=== PATIENT | female | born 1980 | race Caucasian/White ===

== ENCOUNTER 2016-11-30 13:32 | Emergency (ER) | payer BC ==
[~2016-11-30] VITALS: Ht 165.1 cm; Wt 58.5 kg
[2016-11-30 13:37] VITALS: Ht 165.1 cm; Wt 58.5 kg
[2016-11-30] MEDS ORDERED: PRENTAB26 PO (15:03)
[2016-11-30 15:09] LABS: BUN/CREATININE RATIO 17.8 (10-20); CALCIUM 8.8 mg/dl (8.5-10.1); CREATININE 0.67 mg/dl (0.60-1.20); POTASSIUM 3.4 mmol/L (3.5-5.1)
[2016-11-30 15:12] LABS: ALB/GLOB RATIO 1.1 (0.9-2)
--- NOTE | 2016-11-30 15:15 | Medical Consult ---
Consultation Date of Consultation: Nov 30, 2016. Attending Physician: Lizbeth Fuller MD Reason for Consultation: Interstitial ectopic , L side History of Present Illness 36yo at 6w2d seen in office today for NOB nurse visit. She c/o some light spotting, no pain, and was sent for US. The imaging revealed a left cornual / interstitial ectopic measuring 6w0d as read by Dr. Payne. ( Report copy reviewed by myself, images unsuitable for direct re-interpretation due to xeroxing, however I accept Dr. Payne's diagnosis as accurate.) There is slow cardiac activity at 77bpm and no evidence of free fluid. The patient is comfortable and hemodynamically stable. She was sent to ED for further evaluation and treatment considerations. On arrival she is tearful but alert and oriented, in no acute distress, has no pain nor vaginal bleeding. She is accompanied by her . Family History noncontributory Social History , . 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[employer]) Allergies Coded Allergies: No Known Allergies (Unverified , 11/30/16) Home Medications vitamins Review of Systems Constitutional: No fever, No chills Respiratory: No shortness of breath Cardiovascular: No chest pain Abdomen: No nausea, No vomiting, No diarrhea, No constipation Genitourinary - Female: No vaginal bleeding, No vaginal discharge Psychiatric: + problem reported (Appropriately upset about this desired being ectopic) Integumentary: No rash Physical Exam Date Time Temp Pulse Resp B/P (MAP) Pulse Ox O2 Delivery O2 Flow Rate FiO2 11/30/16 13:37 36.8 94 19 126/82 96 Room Air General Appearance: WD/WN Head: normocephalic, atraumatic ENT: hearing grossly normal Neck: supple Respiratory/Chest: no respiratory distress, no accessory muscle use Cardiovascular: no edema Abdomen/GI: non tender, soft Neurologic/Psych: normal mood/affect, oriented x 3 Skin: normal color Laboratory Results Last 24 Hours Test 11/30/16 14:28 Assessment & Plan 36yo with 6w0d Left interstitial ectopic based on imaging from office. Hemodynamically stable without clinical or imaging-based suggestion of rupture. CBC, CMP, T&S, Quant all pending. Discussed treatment options with patient and partner. Illustrations used to explain location of . Discussed the nature of ectopic as a life threatening condition and not a viable . Discussed options including management with methotrexate single or multi dose regimens, with or without leucovorin rescue, with their side effects and risks. Success rates were quoted from literature review as ranging from 60-100% at various centers with the use of multi-dose regimen in the treatment of interstitial . The patient and understand these rates are drawn from studies with relatively small sample sizes, and that she has several factors which may increase her risk of failure including cardiac activity. We discussed surgery including cornuostomy vs cornual wedge resection with their attendant impacts on future pregnancies. We discussed the risks associated with surgery. We discussed the risk of severe bleeding and/or hysterectomy in the event of rupture whether during surgery or medical management. We discussed the relative merits of inpatient vs outpatient treatment, and as she is a good candidate for outpatient treatment, we discussed remaining in the company of an adult who knows her condition and can drive, while also remaining within a short travel time from the hospital, especially in the early days of treatment before we have established a 15% drop in quant. She asked appropriate questions and she and her appear fully capable of participating successfully in a multi-dose regimen with appropriate follow up over the course of several months. If indicated, Rhogam will be provided, and patient is aware. Assuming a CMP shows normal renal/hepatic function, the patient has no other absolute contraindications to methotrexate treatment and wishes to proceed that way. She can receive her first dose today. Leucovorin oral rescue will be arranged for tomorrow, and the patient is aware that her next quant and MTX treatment would require returning to the ER or Saturday. She expresses ability to comply with this. Dr. Childers will be bone tender this weekend and will be made aware of these plans.
[2016-11-30] MEDS ORDERED: LEUC10TA2 PO (15:36)
--- NOTE | 2016-11-30 15:43 | Discharge Instructions ---
Discharge Instructions Date of Service Nov 30, 2016. Admission Reason for Admission: Spotting Discharge Discharge Diagnosis / Problem: Interstitial Left Ectopic Discharge Goals Goal(s): Specific Goal(s) Activity Recommendations Activity Limitations: per Instructions/Follow-up section Lifting Limitations: no more than 10 pounds Exercise/Sports Limitations: rest today (No strenuous activity until advised that treatment is succeeding. NO SEXUAL ACTIVITY.) Shower/Bathe: no limitations Driving or Machine Use: Recommend staying with an adult who is aware of your condition and could take you to ER if you fell ill. . Instructions / Follow-Up Instructions / Follow-Up While being treated with methotrexate: DO NOT use NSAIDs or Vitamins, Multivitamins, or Folate / Folic Acid supplement AVOID foods high in folate including dark leafy greens AVOID sun exposure as methotrexate may cause sun sensitivity DO NOT undergo strenuous physical exercise, heavy lifting, or penetrative sexual intercourse. Please take your leucovorin tablet as prescribed on Saturday, 12/01. Please return to ER as recommended on Saturday, 12/02 for repeat quantitative HCG, evaluation by Dr. Childers, and possible repeat methotrexate treatment. If you experience: Sudden onset of pain, bowel urgency, dizziness, lightheadedness, or passing out , please return to ER. Heavy bright red vaginal bleeding, please return to ER. If you have any questions about symptoms or treatment, please call the on-call [facility] [employer] [employer] at [phone]. Current Hospital Diet Patient's current hospital diet: Discharge Diet Recommended Diet: Regular Diet Pending Studies Studies pending at discharge: no Medical Emergencies . Who to Call and When: Medical Emergencies: If at any time you feel your situation is an emergency, please call 911 immediately. . Non-Emergent Contact Non-Emergency issues call your: Primary Care Provider . . "Provider Documentation" section prepared by Lizbeth Fuller. . VTE Core Measure Inpt VTE Proph given/why not?: Treatment not indicated
[2016-11-30] MEDS ORDERED: METHOTREXATE SOD IM ONE (16:00)
[2016-11-30] MEDS ORDERED: METHOTREXATE SOD IM SCH (16:15)
[2016-11-30 17:05] VITALS: BP 127/77; PULSE 78; TEMP 36.8; O2SAT 98
[2016-12-01] MEDS ORDERED: METHOTREXATE SOD IM SCH (14:15)
== END 2016-11-30 17:06 | disposition home or self-care (01) ==
LOC: C.EDB 13:35
DX: O00.90 Unspecified ectopic pregnancy without intrauterine pregnancy (principal)

== ENCOUNTER → 2016-11-30 | Outpatient (CLI) | payer BC ==
[~2016-11-30] MED LIST: ACET-24 PO; LEUC10TA2 PO; MTHI100 INJ; MTR600X PO; PRENTAB26 PO; RXC5 PO
[2016-11-30 13:10] LABS: BASO % 0.3 %; BASO ABS # 0.02 K/uL (0-0.2); COMPLETE YES; EOS % 0.9 %; HEMATOCRIT 39.4 % (37-47); IG% 0.1 %; LYMPH % 25.2 %; LYMPH ABS # 1.97 K/uL (1.2-3.4); MEAN CELL VOLUME 88.7 fL (80-100); MEAN CORPUSCULAR HEMOGLOBIN 30.6 pg (25-34); MEAN CORPUSCULAR HGB CONC 34.5 g/dl (32-36); MEAN PLATELET VOLUME 10.5 fL (7.4-10.4); MONO % 5.7 %; NEUT % 67.8 %; PLATELET COUNT 277 K/uL (130-400); RED BLOOD COUNT 4.44 M/uL (4.2-5.4); WHITE BLOOD COUNT 7.83 K/uL (4.8-10.8)
== END | disposition home or self-care (01) ==
LOC: C.LAB1850 11:49
PROVIDERS: ATTEND Obstetrics & Gynecology
DX: O09.529 Supervision of elderly multigravida, unspecified trimester (principal); Z3A.00 Weeks of gestation of pregnancy not specified

== ENCOUNTER 2016-12-02 09:22 | Emergency (ER) | payer BC ==
[~2016-12-02] VITALS: Ht 165.1 cm; Wt 57.0 kg
[~2016-12-02 09:22] MED LIST changes: -ACET-24 PO; -MTHI100 INJ; -MTR600X PO; -RXC5 PO
[2016-12-02 09:25] VITALS: TEMP 36.7; Ht 165.1 cm; Wt 57.0 kg
--- NOTE | 2016-12-02 11:29 | Progress Note ---
Subjective Date of Service: Dec 02, 2016. Subjective Pt evaluation today including: conversation w/ patient, lab review Pain: denies PO Intake: tolerating regular diet Patient returns today for f/u of interstitial tubal being treated with multidose MTX regimen. She notes she feels well, no different from before. No n/v/d/c. No abdominal pain. No vaginal bleeding. Notes no sores in her mouth. Her quant today is 13,000. Objective Vital Signs Date Time Temp Pulse Resp B/P (MAP) Pulse Ox O2 Delivery O2 Flow Rate FiO2 12/02/16 09:25 36.7 72 16 122/73 100 Room Air Physical Exam General Appearance: no apparent distress Neurologic/Psychiatric: alert, normal mood/affect, oriented x 3 Laboratory Results Last 24 Hours Test 12/02/16 09:53 Human Chorionic Gonadotropin, Quant 41942 mIU/mL Assessment and Plan INtersititial tubal ectopic . Plan another dose of MTX today 60 mg IM. Discussed with pharmacist who was expecting the call. Again reviewed in detail concerning signs and symptoms, and to call with any concerns. She took her leukovorin yesterday and is to repeat tomorrow. She will have a quant on and visit in the office with Dr. Fuller. Reassured that treatment not failing just because quant has risen. Will rise as cells lyse and release Bhcg.
[2016-12-02] MEDS ORDERED: METHOTREXATE SOD IM ONE (11:30)
[2016-12-02] MEDS: METHOTREXATE SOD IM SCH ×2 (12:09→12:16)
[2016-12-02 12:15] VITALS: BP 118/74; PULSE 60; O2SAT 98
== END 2016-12-02 12:27 | disposition home or self-care (01) ==
LOC: C.EDB 09:25
DX: Z09 Encounter for follow-up examination after completed treatment for conditions other than malignant neoplasm (principal); O00.10 Tubal pregnancy without intrauterine pregnancy

== ENCOUNTER → 2016-12-04 | Outpatient (CLI) | payer BC ==
[~2016-12-04] MED LIST changes: +ACET-24 PO; +MTHI100 INJ; +MTR600X PO; -PRENTAB26 PO; +RXC5 PO
== END | disposition home or self-care (01) ==
LOC: C.LAB1850 07:55
PROVIDERS: ATTEND Obstetrics & Gynecology
DX: O00.80 Other ectopic pregnancy without intrauterine pregnancy (principal)

== ENCOUNTER → 2016-12-06 | Outpatient (CLI) | payer BC | END | disposition home or self-care (01) | LOC: C.LAB1850 07:55 | PROVIDERS: ATTEND Obstetrics & Gynecology | DX: O00.80 Other ectopic pregnancy without intrauterine pregnancy (principal) ==

== ENCOUNTER 2016-12-07 06:28 | Inpatient (IN) | payer BC ==
[2016-12-07] VITALS (12 sets, daily range): BP systolic 102–123; BP diastolic 66–76; PULSE 60–89; TEMP 36.4–36.8; O2SAT 97–100
[~2016-12-07] VITALS: Ht 165.1 cm; Wt 57.8 kg
[2016-12-07] MEDS ORDERED: SODIUM CHLORIDE 0.9% 1000ML 1,000 ML IV STA ×2 (06:44→07:35)
[2016-12-07] MEDS ORDERED: LEUC10TA2 PO (06:51)
[2016-12-07] MEDS ORDERED: MTHI100 INJ (06:51)
--- NOTE | 2016-12-07 06:53 | EMERGENCY ROOM VISIT NOTE ---
History Report prepared by Archana: Sasha Turner Under the Supervision of: Dr. Jean Vazquez M.D. First contact with patient: 06:30 Chief Complaint: OTHER COMPLAINT Stated Complaint: ECTOPIC , FEELING OFF History of Present Illness The patient is a 36 year old female who presents to the Emergency Room with complaints of constant illness that started this morning when the patient woke up. The patient states that she is experiencing a headache, lightheadedness, generalized weakness, and mild abdominal pain. She states that the headache is not the worst headache that she has ever experienced and would probably resolve with medication but since she is being treated for an ectopic she was told not to take any medications. Dr. Fuller - OB-WORLD LANGUAGE TEACHER started treating the patient for an ectopic 1 week ago. She started the patient on Methotrexate and Leucovorin. She states that her most recent dose of Methotrexate was yesterday and she adds that she did not take Leucovorin. The patient's beta hCG started to fall yesterday. Source of History: patient Onset: this morning when she woke up Position: other (global) Quality: other (illness) Timing: constant Associated Symptoms: + headache, + abdominal pain (mild), + weakness ( generalized) Note: lightheadedness Review of Systems See HPI for pertinent positives & negatives. A total of 10 systems reviewed and were otherwise negative. Past Medical & Surgical Medical Problems: (1) Asthma Surgical Problems: (1) History of section Family History Cancer Hypertension Social History Smoking Status: Never Smoker Drug Use: none Marital Status: Housing Status: lives with family Occupation Status: employed Current/Historical Medications Scheduled Leucovorin Calcium (Leucovorin Calcium), 10 MG PO DIRECTED Methotrexate Sod (Methotrexate Sodium), 60 MG INJ DIRECTED Miscellaneous Medications [none] Allergies Coded Allergies: No Known Allergies (Unverified , 12/07/16) Physical Exam Vital Signs Date Time Temp Pulse Resp B/P (MAP) Pulse Ox O2 Delivery O2 Flow Rate FiO2 12/07/16 09:22 88 12/07/16 08:49 64 16 109/80 12/07/16 07:06 63 12/07/16 07:04 100 Room Air 12/07/16 06:32 36.6 89 16 132/77 99 Room Air Physical Exam GENERAL: Patient is a healthy-appearing well-nourished female. Patient is pale in appearance. HEAD: Normocephalic atraumatic EYES: Ocular movements intact pupils equal and react to light OROPHARYNX mucous membranes are moist no exudates present no erythema or edema present NECK: Supple no nuchal rigidity CHEST: Good equal expansion LUNGS: Clear and equal to auscultation CARDIAC: Normal S1 and S2 ABDOMEN: Soft nontender no guarding BACK: No CVA tenderness EXTREMITIES: No pain upon palpation normal muscle strength in all groups no clubbing cyanosis or edema NEURO: Patient is following commands and answering questions appropriately. Alert and oriented x3 Cranial Nerves 2-12 grossly intact Medical Decision & Procedures ER Provider Diagnostic Interpretation: US results as stated below per my review and radiologist interpretation: <14 WKS SINGLE FINDINGS: Uterus is midline with a greatest dimension of 8.5 cm. Endometrial thickness is 9 mm. 1.3 cm fibroid. Empty gestational sac identified in the left lateral fundal region of the uterus. No pole is identified. Small 1.5 cm corpus luteum cyst left ovary. IMPRESSION: Empty gestational sac identified in the left fundal region of the uterus. No pole is identified. Small left ovarian cyst. The above report was generated using voice recognition software. It may contain grammatical, syntax or spelling errors. Electronically signed by: Jose D Davis M.D. 12/07/2016 8:34 AM Dictated Date/Time: 12/07/2016 8:31 AM Laboratory Results 12/07/16 06:40 Red Blood Count 4.29, Mean Corpuscular Volume 88.8, Mean Corpuscular Hemoglobin 31.2, Mean Corpuscular Hemoglobin Concent 35.2, Mean Platelet Volume 10.7, Neutrophils (%) (Auto) 64.0, Lymphocytes (%) (Auto) 27.9, Monocytes (%) (Auto) 6.4, Eosinophils (%) (Auto) 1.5, Basophils (%) (Auto) 0.1, Neutrophils # (Auto) 4.40, Lymphocytes # (Auto) 1.92, Monocytes # (Auto) 0.44, Eosinophils # (Auto) 0.10, Basophils # (Auto) 0.01 12/07/16 06:40 Test 12/07/16 06:40 12/07/16 06:49 12/07/16 08:20 12/07/16 08:39 White Blood Count 6.88 K/uL (4.8-10.8) Red Blood Count 4.29 M/uL (4.2-5.4) Hemoglobin 13.4 g/dL (12.0-16.0) Hematocrit 38.1 % (37-47) Mean Corpuscular Volume 88.8 fL (80-100) Mean Corpuscular Hemoglobin 31.2 pg (25-34) Mean Corpuscular Hemoglobin Concent 35.2 g/dl (32-36) Platelet Count 258 K/uL (130-400) Mean Platelet Volume 10.7 fL (7.4-10.4) Neutrophils (%) (Auto) 64.0 % Lymphocytes (%) (Auto) 27.9 % Monocytes (%) (Auto) 6.4 % Eosinophils (%) (Auto) 1.5 % Basophils (%) (Auto) 0.1 % Neutrophils # (Auto) 4.40 K/uL (1.4-6.5) Lymphocytes # (Auto) 1.92 K/uL (1.2-3.4) Monocytes # (Auto) 0.44 K/uL (0.11-0.59) Eosinophils # (Auto) 0.10 K/uL (0-0.5) Basophils # (Auto) 0.01 K/uL (0-0.2) RDW Standard Deviation 39.1 fL (36.4-46.3) RDW Coefficient of Variation 12.2 % (11.5-14.5) Immature Granulocyte % (Auto) 0.1 % Immature Granulocyte # (Auto) 0.01 K/uL (0.00-0.02) Est Creatinine Clear Calc Drug Dose 97.6 ml/min Estimated GFR () 126.1 Estimated GFR (Non- 108.8 BUN/Creatinine Ratio 17.1 (10-20) Calcium Level 9.2 mg/dl (8.5-10.1) Total Bilirubin 0.9 mg/dl (0.2-1) Aspartate Amino Transf (AST/SGOT) 14 U/L (15-37) Alanine Aminotransferase (ALT/SGPT) 21 U/L (12-78) Alkaline Phosphatase 58 U/L (45-117) Total Protein 7.9 gm/dl (6.4-8.2) Albumin 4.3 gm/dl (3.4-5.0) Globulin 3.6 gm/dl (2.5-4.0) Albumin/Globulin Ratio 1.2 (0.9-2) Human Chorionic Gonadotropin, Quant 71160 mIU/mL Bedside Hemoglobin 13.3 g/dl (12.0-16.0) Bedside Hematocrit 39 % (37-47) Bedside Sodium 139 mEq/L (135-144) Bedside Potassium 3.7 mEq/L (3.3-5.0) Bedside Chloride 101 mEq/L (101-112) Bedside Total CO2 24 mEq/l (24-31) Anion Gap 18.0 mmol/L (16-25) Bedside Blood Urea Nitrogen 12 mg/dl (7-18) Bedside Creatinine 0.7 mg/dl (0.6-1.3) Bedside Glucose (other) 112 mg/dl (70-99) Bedside Ionized Calcium (Brock) 1.16 mmol/l (1.12-1.32) Urine Color YELLOW Urine Appearance CLOUDY (CLEAR) Urine pH 6.5 (4.5-7.5) Urine Specific [place] 1.016 (1.000-1.030) Urine Protein NEG (NEG) Urine Glucose (UA) NEG (NEG) Urine Ketones NEG (NEG) Urine Occult Blood NEG (NEG) Urine Nitrite NEG (NEG) Urine Bilirubin NEG (NEG) Urine Urobilinogen NEG (NEG) Urine Leukocyte Esterase MODERATE (NEG) Urine WBC (Auto) 1-5 /hpf (0-5) Urine RBC (Auto) 0-4 /hpf (0-4) Urine Hyaline Casts (Auto) 0 /lpf (0-5) Urine Epithelial Cells (Auto) 10-20 /lpf (0-5) Urine Bacteria (Auto) NEG (NEG) Prothrombin Time 11.4 SECONDS (9.0-12.0) Prothromb Time International Ratio 1.1 (0.9-1.1) Activated Partial Thromboplast Time 26.8 SECONDS (21.0-31.0) Partial Thromboplastin Ratio 1.0 Labs reviewed by ED physician. Medications Administered Medications (Trade) Dose Ordered Sig/Uyen Route Start Time Stop Time Status Last Admin Dose Admin Sodium Chloride 1,000 ml @ 999 mls/hr Q1H1M STAT IV 12/07/16 06:44 12/07/16 07:44 DC 12/07/16 07:05 999 MLS/HR ED Course 0635: Past medical records reviewed. The patient was evaluated in room B2. A complete history and physical examination was performed. 0642: I discussed the patient's case with Dr. Childers - OB-WORLD LANGUAGE TEACHER. She says to definitely get a CBC and beta hCG. She also said to get an ultrasound. 0644: Ordered Sodium Chloride 1000 ml @ 999 mls/hr IV 0645: I updated the patient and her on my conversation with Dr. Childers. 0735: Ordered Sodium Chloride 1000 ml @ 999 mls/hr IV 0909: Dr. Encarnacion - OB-WORLD LANGUAGE TEACHER evaluated the patient in the ED and is going to take her to the OR. 0915: Upon reexamination the patient is resting comfortably. I discussed results and treatment plan with the patient. She verbalizes agreement and understanding. The patient will go to the OR for further management. Medical Decision Differential diagnosis: Etiologies such as appendicitis, diverticulitis, PUD, biliary pathology, UTI, pancreatitis, obstruction, mesenteric ischemia, aortic pathology, infections, inflammatory bowel disease, renal colic, as well as others were entertained. This is a 36-year-old female who presents emergency department complaining of ectopic . The patient is requesting that her hydraulic assembler be called. This was done and the patient was sent for an ultrasound per gynecology request. The patient also has CBC renal profile performed. The patient was then taken to the operating room by Dr. Encarnacion.. Medication Reconcilliation Current Medication List: was personally reviewed by me Blood Pressure Screening Patient's blood pressure: Normal blood pressure Consults Time Called: [phone] Consulting Physician: Dr. Childers - OB-WORLD LANGUAGE TEACHER Returned Call: [phone] I discussed the patient's case with Dr. Childers - OB-WORLD LANGUAGE TEACHER. She says to definitely get a CBC and beta hCG. She also said to get an ultrasound. Impression Primary Impression: Ectopic Scribe Attestation The scribe's documentation has been prepared under my direction and personally reviewed by me in its entirety. I confirm that the note above accurately reflects all work, treatment, procedures, and medical decision making performed by me. Departure Information Dispostion Being Evaluated By Surgeon Referrals No Doctor, Assigned (PCP) Patient Instructions My [facility] Problem Qualifiers Primary Impression: Ectopic Location of ectopic : unspecified location Intrauterine status: unspecified Qualified Codes: O00.90 - Unspecified ectopic without intrauterine
[2016-12-07 06:59] LABS: BASO % 0.1 %; BASO ABS # 0.01 K/uL (0-0.2); COMPLETE YES; EOS % 1.5 %; HEMATOCRIT 38.1 % (37-47); IG% 0.1 %; LYMPH % 27.9 %; LYMPH ABS # 1.92 K/uL (1.2-3.4); MEAN CELL VOLUME 88.8 fL (80-100); MEAN CORPUSCULAR HEMOGLOBIN 31.2 pg (25-34); MEAN CORPUSCULAR HGB CONC 35.2 g/dl (32-36); MEAN PLATELET VOLUME 10.7 fL (7.4-10.4); MONO % 6.4 %; PLATELET COUNT 258 K/uL (130-400); RED BLOOD COUNT 4.29 M/uL (4.2-5.4); WHITE BLOOD COUNT 6.88 K/uL (4.8-10.8)
[2016-12-07 07:02] LABS: ISTAT CREATININE 0.7 mg/dl (0.6-1.3); ISTAT HEMOGLOBIN 13.3 g/dl (12.0-16.0); ISTAT IONIZED CALCIUM 1.16 mmol/l (1.12-1.32)
[2016-12-07 07:32] LABS: BUN/CREATININE RATIO 17.1 (10-20); CALCIUM 9.2 mg/dl (8.5-10.1); CREATININE 0.71 mg/dl (0.60-1.20); POTASSIUM 3.8 mmol/L (3.5-5.1)
[2016-12-07 07:35] LABS: ALB/GLOB RATIO 1.2 (0.9-2)
--- NOTE | 2016-12-07 08:35 | DIAGNOSTIC IMAGING REPORT ---
<14 WKS SINGLE CLINICAL HISTORY: Pt c/o ectopic US ultrasound. Pain. TECHNIQUE: Ultrasound COMPARISON STUDY: None FINDINGS: Uterus is midline with a greatest dimension of 8.5 cm. Endometrial thickness is 9 mm. 1.3 cm fibroid. Empty gestational sac identified in the left lateral fundal region of the uterus. No pole is identified. Small 1.5 cm corpus luteum cyst left ovary. IMPRESSION: Empty gestational sac identified in the left fundal region of the uterus. No pole is identified. Small left ovarian cyst. The above report was generated using voice recognition software. It may contain grammatical, syntax or spelling errors. Electronically signed by: Jose D Davis M.D. 12/07/2016 8:34 AM Dictated Date/Time: 12/07/2016 8:31 AM
[2016-12-07 08:49] LABS: URINE APPEARANCE CLOUDY (CLEAR); URINE BILIRUBIN NEG (NEG); URINE COLOR YELLOW; URINE NITRITE NEG (NEG); URINE PH 6.5 (4.5-7.5); URINE SPECIFIC GRAVITY 1.016 (1.000-1.030); UROBILINOGEN NEG (NEG); ZZUR CULT IF INDIC CLEAN CATCH NO
[2016-12-07 09:00] LABS: INR 1.1 (0.9-1.1); PROTHROMBIN TIME (PATIENT) 11.4 SECONDS (9.0-12.0)
[2016-12-07 09:02] LABS: MANUAL MICROSCOPIC REQUIRED? NO; REVIEW REQ? YES
[2016-12-07] MEDS ORDERED: LACTATED RINGER'S 1000ML 1,000 ML IV SCH (09:24)
[2016-12-07] MEDS ORDERED: VASOPRESSIN 20 UNIT/ML VIAL ONE (10:47)
--- NOTE | 2016-12-07 10:55 | History & Physical Bridge Note ---
H&P Re-Evaluation Bridge Note: I have examined the patient, reviewed the History & Physical and in the interval since the performance of the History & Physical I have noted the following changes of clinical significance: The formal H&P has been dictated. Risks/benefits and alternatives discussed, permit has been signed.
--- NOTE | 2016-12-07 10:56 | HISTORY & PHYSICAL EXAMINATION ---
DATE OF ADMISSION: 12/07/2016 ADMITTING DIAGNOSES: 1. Corneal ectopic . 2. Failed medical therapy. ADMISSION HISTORY: The patient is a 36-year-old 3, para 1 with a last menstrual period of 17 October at 7 weeks gestational age who is admitted for exploratory laparotomy and resection of left corneal ectopic . The patient was diagnosed with this ectopic in the office last week. She was seen for some mild vaginal spotting and had a transvaginal ultrasound which showed no intrauterine within the endometrial canal, but endometrial in the left cornea with a pole and cardiac activity. That diagnosis was explained to the patient and treatment options were discussed. Given the location of the and concerns an attempt at conservative management was instituted. This was high dose methotrexate with leucovorin rescue. The patient has received a total of 4 doses of methotrexate and serial quantitative HCGs have been followed. On the morning of admission, the patient woke with some generalized discomfort, lightheadedness and intermittent abdominal pain and went to the Emergency Room for further evaluation. In the Emergency Room, the patient had a pelvic ultrasound as well as a quantitative hCG. While the pelvic ultrasound showed no cardiac pole or cardiac activity residual sac in the left cornual uterus was noted. The patient's quantitative hCG over the last 24 hours has risen slightly. Treatment options were discussed and the patient has been admitted for surgical removal of the ectopic . PAST MEDICAL HISTORY: OBSTETRICAL: section x1 with postoperative wound infection. RN CIRCULATING: As above. MEDICAL: Migraine headaches. SURGICAL: [place] teeth extraction and section. ALLERGIES: No known drug allergies. SOCIAL HISTORY: No smoking. FAMILY HISTORY: Noncontributory. REVIEW OF SYSTEMS: As per HPI. PHYSICAL EXAMINATION: GENERAL: Shows a thin white female in no acute distress. VITAL SIGNS: Blood pressure 109/80 and a pulse of 88. She has a weight of 126 pounds. HEAD, EYES, EARS, NOSE, AND THROAT EXAMINATION: Unremarkable. NECK: Supple. LUNGS: Clear. HEART: With a regular rhythm and rate. ABDOMEN: Soft with no tenderness. No rebound, no guarding, no organomegaly. Positive bowel sounds. PELVIC EXAMINATION: Shows normal external genitalia. Vaginal vault is pink and rugated. Cervical os is closed. Bimanual examination shows a posterior mobile uterus with some fullness in the left adnexal area but no distinct masses. EXTREMITY EXAMINATION: Shows no deep calf tenderness. NEUROLOGICAL EXAMINATION: Grossly intact. ADMISSION LABORATORY VALUES: Show an H&H of 13.4 and 38.1. Quantitative hCG of 12,416. IMPRESSION: A 36-year-old G3, P1, 7+ weeks gestational age. Known corneal ectopic , failed medical therapy. PLAN: The patient's hCG unfortunately has risen slightly over the last 24 hours. She had received 4 doses of the methotrexate and was scheduled to have another hCG level drawn in 24 additional hours. At that time, a 15% drop would need to have occurred for this to have been successful therapy. Considering that the hCG has risen the probability of this dropping 15% in the next 24 hours is minimal. On ultrasound, the can still clearly be seen in terms of a sac in the left cornual area, but there is no pole or cardiac activity. There is no free fluid in the cul-de-sac. Given the multiple doses of the methotrexate and the rising quantitative hCG a diagnosis of failed medical termination has been made. Because of the high risk of this rupturing causing uncontrolled hemorrhage at this point surgical removal of the ectopic is indicated. The risks, benefits and alternatives to this have been discussed. While the benefits will be removal of the ectopic, the risks are bleeding, infection, inadvertent injury to bowel or bladder, failure to remove all gestational tissue and the possibility of uncontrolled hemorrhaging necessitating emergency hysterectomy. We have also discussed that further childbearing may not be indicated depending upon the amount of uterine tissue excised. All questions answered of the patient. Surgical permit has been signed and the patient wishes to proceed.
[2016-12-07] MEDS ORDERED: LIDOCAINE HCL 2% 2 ML VIAL (20MG/ML) ONE (11:04)
[2016-12-07] MEDS ORDERED: PROPOFOL IV EMULSION 10 MG/ML 20 ML VIAL IV ONE (11:04)
[2016-12-07] MEDS ORDERED: ROCURONIUM BROMIDE 10 MG/ML 5 ML VIAL ONE (11:04)
[2016-12-07] MEDS ORDERED: MoRPHine SULFATE PF 1 MG/ML 10 ML AMP/VIAL ONE (11:05)
[2016-12-07] MEDS ORDERED: FENTANYL CITRATE INJ 50 MCG/1 ML 2 ML VIAL ONE ×2 (11:05→12:49)
[2016-12-07] MEDS ORDERED: MIDAZOLAM HCL 1 MG/ML 2ML VIAL ONE (11:05)
[2016-12-07] MEDS ORDERED: NEOSTIGMINE METHYLSULFATE 5 MG/5 ML SYR ONE (12:14)
[2016-12-07] MEDS ORDERED: ONDANSETRON INJ 2 MG/ML 2 ML VIAL ONE (12:14)
[2016-12-07] MEDS ORDERED: GLYCOPYRROLATE INJ 0.2 MG/ML VIAL ONE (12:14)
[2016-12-07] MEDS ORDERED: ACETAMINOPHEN 1000 MG/100 ML IV IV ONE (12:21)
[2016-12-07] MEDS ORDERED: LACTATED RINGER'S 1000ML 500 ML IV PRN (12:52)
[2016-12-07] MEDS ORDERED: NALOXONE HCL INJ 1 MG in SODIUM CHLORIDE 0.9% 1000ML 1,000 ML IV PRN (12:52)
[2016-12-07] MEDS ORDERED: SODIUM CHLORIDE 0.9% 1000ML 1,000 ML IV PRN (12:52)
[2016-12-07] MEDS ORDERED: NALOXONE HCL INJ 0.08 MG in SYRINGE 1.8 ML IV PRN (12:52)
--- NOTE | 2016-12-07 12:53 | [facility] Post Operative Brief Note ---
Immediate Operative Summary Operative Date Dec 07, 2016. Pre-Operative Diagnosis Cornual ectopic Post-Operative Diagnosis Same Procedure(s) Performed 1) Exploratory Laparotomy, 2) resection of cornual Surgeon Dr. Encarnacion Wind Turbine Design Engineer Surgeon(s) Dr Vero Key Estimated Blood Loss 30ml Findings Left cornual resected and defect closed Specimens a. Left cornual resection b. gestational sac Drains [place] to gravity Anesthesia General Complication(s) None Disposition Recovery Room / PACU
[2016-12-07] MEDS ORDERED: HYDROmorphone INJ 1 MG/ML SYR IV PRN (13:00)
[2016-12-07] MEDS ORDERED: FENTANYL CITRATE INJ 50 MCG/1 ML 2 ML VIAL IV PRN (13:00)
[2016-12-07] MEDS ORDERED: NALOXONE HCL 0.4 MG/1 ML VIAL/CARP IV PRN ×2 (13:00→14:15)
[2016-12-07] MEDS ORDERED: MEPERIDINE HCL 25 MG/ML CARP IV PRN (13:00)
[2016-12-07] MEDS ORDERED: NO NARCOTICS OR SEDATIVES SCH (13:00)
[2016-12-07] MEDS ORDERED: ATROPINE SULFATE 0.1 MG/ML 5ML SYR IV PRN (13:00)
[2016-12-07] MEDS ORDERED: PROMETHAZINE HCL INJ 6.25 MG in SODIUM CHLORIDE 0.9% 50ML 50 ML IV PRN ×4 (13:00)
[2016-12-07] MEDS ORDERED: EpHEDrine SULFATE INJ 50 MG/ML AMP IV PRN ×2 (13:00)
[2016-12-07] MEDS ORDERED: DiphenhydrAMINE HCL 50 MG/ML VIAL IV PRN (13:00)
[2016-12-07] MEDS ORDERED: MoRPHine SULFATE 2 MG/ML CARP IV PRN (13:00)
[2016-12-07] MEDS ORDERED: LORAZEPAM INJ 0.5 MG in SYRINGE 0.75 ML IV PRN (13:00)
[2016-12-07] MEDS ORDERED: ONDANSETRON INJ 2 MG/ML 2 ML VIAL IV PRN ×2 (13:00)
[2016-12-07] MEDS ORDERED: LORAZEPAM 1 MG TAB PO PRN (13:00)
[2016-12-07] MEDS ORDERED: MoRPHine SULFATE PF 1 MG/ML 10 ML AMP/VIAL EPI PRN (13:00)
[2016-12-07] MEDS ORDERED: HYDROmorphone INJ 1 MG/ML SYR ONE ×2 (13:07→13:25)
[2016-12-07] MEDS ORDERED: NALBUPHINE HCL INJ 10 MG/ML AMP ONE (13:08)
[2016-12-07] MEDS ORDERED: SODIUM CHLORIDE 0.9% 1000ML 1,000 ML IV SCH (14:02)
[2016-12-07] MEDS ORDERED: HYDROmorphone HCL 0.5MG/ML 50 ML CASSETTE ONE (14:07)
--- NOTE | 2016-12-07 14:08 | Anesthesiology Progress Note ---
Anesthesia Post Op Note Date & Time Dec 07, 2016 at 14:04 Vital Signs Pain Intensity: 5 Vital Signs Past 12 Hours Date Time Temp Pulse Resp B/P (MAP) Pulse Ox O2 Delivery O2 Flow Rate FiO2 12/07/16 13:50 52 12 119/62 100 Nasal Cannula 2 12/07/16 13:40 50 18 114/65 99 Nasal Cannula 2 12/07/16 13:30 51 18 107/66 99 Nasal Cannula 2 12/07/16 13:20 52 16 104/62 99 Nasal Cannula 2 12/07/16 13:10 54 13 112/45 99 Nasal Cannula 2 12/07/16 13:00 48 13 109/62 100 Nasal Cannula 3 12/07/16 12:50 47 18 109/56 100 Nasal Cannula 3 12/07/16 12:44 36.0 52 16 104/59 99 Nasal Cannula 3 12/07/16 10:20 36.7 82 16 136/83 99 12/07/16 09:22 88 12/07/16 08:49 64 16 109/80 12/07/16 07:06 63 12/07/16 07:04 100 Room Air 12/07/16 06:32 36.6 89 16 132/77 99 Room Air Notes Mental Status: alert / awake / arousable, participated in evaluation Pt Amnestic to Procedure: Yes Nausea / Vomiting: adequately controlled Pain: adequately controlled, improving with treatment, see Notes Airway Patency, RR, SpO2: stable & adequate BP & HR: stable & adequate Hydration State: stable & adequate Anesthetic Complications: no major complications apparent Significant abdominal pain in pacu. This did respond somewhat to treatment with narcotics IV. However, the patient did not have optimum pain control despite spinal morphine and significant IV narcotics. As NSAIDs are contraindicated with her high recent MTX dosing, will do 24 hours of scheduled ofirmev and additionally will order a dilaudid STRIPPER COLOR. 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
--- NOTE | 2016-12-07 15:09 | OPERATIVE REPORT ---
DATE OF OPERATION: 12/07/2016 PREOPERATIVE DIAGNOSES: 1. Left cornual ectopic . 2. Failed medical therapy. POSTOPERATIVE DIAGNOSIS: Same. PROCEDURE PERFORMED: 1. Exploratory laparotomy. 2. Resection of left cornual . SURGEON: Dr. Encarnacion. BODY LINER: Dr. Vero Key. ANESTHESIA: General. FINDINGS: Exploration of the pelvis showed a 6-week size uterus with a vascular insertion of the left tube into the cornual aspect of the uterus, normal appearing right tube and ovary, normal appearing left ovary. Left cornual resection of the uterus encompassing gestational sac which was extruded. Corneal resection and sac sent for pathological evaluation. PROCEDURE IN DETAIL: The patient was taken to the operating room and after general anesthesia was placed in a supine position and draped and prepped in the usual fashion. Pfannenstiel type incision through previous surgical scar was made. Underlying subcutaneous tissue was dissected down to the ventral abdominal fascia, which was nicked and opened in a horizontal manner. Preperitoneal fascia was dissected away until the peritoneal cavity was entered in a vertical manner. The pelvis was visualized with description as above. The O'Efren-O'Torres retractor was inserted into the incision with proper packing and elevation to take pressure off nerves. Anterior and posterior bladder blade was placed. Intestines were packed into the upper abdomen. The uterus was brought up out of the pelvis with description as above. A vascular bulldog clamp was placed across the left infundibulopelvic ligament and the right infundibulopelvic ligament. A Ximena clamp was placed across the adnexal junction of the broad ligament with the uterus above the uterine vessels. The vascular area was injected with a diluted Pitressin solution. An elliptical 3 cm incision was made, dissecting down with blunt and sharp dissection to a depth of approximately 2-3 cm. The wedged area was then bivalved and the gestational sac was extruded through the defect indicative of the cornual . Cornual wedge resection was removed. Hemostasis was present in the defect. The defect was closed in layers with 2-0 Vicryl with interrupted stitch and the serosa of the uterus was closed with a running baseball suture of 2-0 Vicryl. The pelvis was thoroughly irrigated with 2000 mL of warm saline. Bulldog clamps were removed from the vascular pedicles. A suture was placed around the Ximena clamp which was then removed and tied, this was 0 Vicryl. The incision was inspected for hemostasis, which was present. It was observed for 10 minutes with no active bleeding. At this point, the decision was made to terminate the procedure. The O'Efren-O'Torres retractor was removed from the incision along with packing. Sponge and needle count was correct. Rectus muscle was plicated in the midline with a running 2-0 Vicryl stitch. The fascia was then reapproximated with a running 0 Vicryl suture and the skin incision was closed with a 4-0 Monocryl subcuticular suture. Sterile dressing was applied and the patient was taken to the recovery room in satisfactory condition. I attest to the content of the Intraoperative Record and any orders documented therein. Any exception s are noted below.
[2016-12-07] MEDS: DiphenhydrAMINE HCL 50 MG/ML VIAL IV PRN (15:15)
[2016-12-07] MEDS: LACTATED RINGER'S 1000ML 1,000 ML IV SCH ×2 (15:15→21:10)
[2016-12-07] MEDS ORDERED: LEUCOVORIN CALCIUM 5 MG TAB PO SCH (18:00)
[2016-12-07] MEDS: HYDROmorphone HCL 0.5MG/ML 50 ML CASSETTE IV PRN (19:16)
[2016-12-07] MEDS: ACETAMINOPHEN IV 1,000 MG in EMPTY BAG 0 ML IV SCH (19:58)
[2016-12-07] MEDS: NALBUPHINE HCL INJ 10 MG/ML AMP IV PRN (19:59)
[2016-12-08] VITALS (15 sets, daily range): BP systolic 99–109; BP diastolic 61–70; PULSE 56–88; TEMP 36.5–36.9; O2SAT 96–99; Ht 165.1 cm; Wt 57.8 kg
[2016-12-08] MEDS: NALBUPHINE HCL INJ 10 MG/ML AMP IV PRN (02:06)
[2016-12-08] MEDS: ACETAMINOPHEN IV 1,000 MG in EMPTY BAG 0 ML IV SCH ×2 (04:14→11:43)
[2016-12-08] MEDS: LACTATED RINGER'S 1000ML 1,000 ML IV SCH (05:46)
[2016-12-08] MEDS: DiphenhydrAMINE HCL 50 MG/ML VIAL IV PRN (05:46)
[2016-12-08 06:44] LABS: BASO % 0.1 %; BASO ABS # 0.01 K/uL (0-0.2); COMPLETE YES; EOS % 0.2 %; HEMATOCRIT 32.6 % (37-47); IG% 0.2 %; LYMPH % 16.1 %; LYMPH ABS # 1.83 K/uL (1.2-3.4); MEAN CELL VOLUME 87.6 fL (80-100); MEAN CORPUSCULAR HEMOGLOBIN 30.1 pg (25-34); MEAN CORPUSCULAR HGB CONC 34.4 g/dl (32-36); MEAN PLATELET VOLUME 9.8 fL (7.4-10.4); NEUT % 79.4 %; PLATELET COUNT 209 K/uL (130-400); RED BLOOD COUNT 3.72 M/uL (4.2-5.4); WHITE BLOOD COUNT 11.36 K/uL (4.8-10.8)
[2016-12-08] MEDS ORDERED: ONDANSETRON INJ 2 MG/ML 2 ML VIAL IV PRN (07:00)
[2016-12-08] MEDS ORDERED: OXYCODONE/ACETAMINOPHEN 5-325 TAB PO PRN (07:00)
[2016-12-08] MEDS ORDERED: DC INTRASPINAL MORPHINE SCH (07:00)
[2016-12-08] MEDS: HYDROmorphone HCL 0.5MG/ML 50 ML CASSETTE IV PRN (07:03)
--- NOTE | 2016-12-08 08:32 | OB/GYN Progress Note ---
LOG WASHER Progress Note Date of Service Dec 08, 2016. 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 pain is now rated at 3/10. Review of Systems Constitutional: No fever, No chills, No sweats, No weight loss, No weakness, No fatigue, No problem reported Respiratory: No cough, No sputum, No wheezing, No shortness of breath, No dyspnea on exertion, No dyspnea at rest, No hemoptysis, No problem reported Cardiac: No chest pain, No orthopnea, No PND, No edema, No claudication, No palpitations, No problem reported Female : No see HPI, No dysuria, No urinary frequency, No hematuria, No incontinence, No abnormal vaginal bleeding, No vaginal discharge, No problem reported Objective Vital Signs Date Time Temp Pulse Resp B/P (MAP) Pulse Ox O2 Delivery O2 Flow Rate FiO2 12/08/16 07:40 36.8 59 16 107/69 (82) 98 Room Air 12/08/16 07:40 98 Room Air 12/08/16 07:00 18 97 12/08/16 06:05 18 97 12/08/16 05:05 16 98 12/08/16 04:15 36.9 73 18 99/61 (74) 97 Room Air 12/08/16 04:05 18 97 12/08/16 03:05 16 97 12/08/16 02:05 18 97 12/08/16 01:10 18 96 12/08/16 00:10 16 96 12/07/16 23:10 36.7 61 18 102/66 (78) 97 Room Air 12/07/16 23:10 18 97 12/07/16 23:10 97 Room Air 12/07/16 22:15 16 99 12/07/16 22:15 16 99 Room Air 12/07/16 21:15 16 99 12/07/16 20:15 100 Nasal Cannula 1.0 12/07/16 20:15 36.4 60 18 113/76 (88) 100 Nasal Cannula 1.0 12/07/16 20:15 18 100 12/07/16 19:15 18 99 12/07/16 18:20 36.4 65 18 119/69 (86) 99 Nasal Cannula 2.0 12/07/16 18:20 18 99 12/07/16 17:20 20 99 12/07/16 17:20 72 20 116/74 (88) 99 Nasal Cannula 2.0 12/07/16 16:20 67 20 119/72 (88) 100 Nasal Cannula 2.0 12/07/16 16:20 20 99 12/07/16 15:50 22 100 12/07/16 15:50 68 22 112/71 (85) 100 Nasal Cannula 2.0 12/07/16 15:20 18 99 12/07/16 15:20 89 18 119/74 (89) 99 Nasal Cannula 2.0 12/07/16 14:50 68 20 123/68 (86) 99 Nasal Cannula 2.0 12/07/16 14:50 20 99 12/07/16 14:20 36.8 72 24 118/70 (86) 99 Nasal Cannula 2.0 12/07/16 14:20 24 99 12/07/16 14:20 99 Nasal Cannula 2.0 12/07/16 14:20 99 Nasal Cannula 2.0 12/07/16 14:00 36.3 54 14 117/60 100 Nasal Cannula 2 12/07/16 13:50 52 12 119/62 100 Nasal Cannula 2 12/07/16 13:40 50 18 114/65 99 Nasal Cannula 2 12/07/16 13:30 51 18 107/66 99 Nasal Cannula 2 12/07/16 13:20 52 16 104/62 99 Nasal Cannula 2 12/07/16 13:10 54 13 112/45 99 Nasal Cannula 2 12/07/16 13:00 48 13 109/62 100 Nasal Cannula 3 12/07/16 12:50 47 18 109/56 100 Nasal Cannula 3 12/07/16 12:44 36.0 52 16 104/59 99 Nasal Cannula 3 12/07/16 10:20 36.7 82 16 136/83 99 12/07/16 09:22 88 12/07/16 08:49 64 16 109/80 Physical Exam General Appearance: WELL-APPEARING, NO APPARENT DISTRESS Abdomen: soft (hypoactive ) Incision Description: Clean, Dry & Intact Extremities: no calf tenderness Laboratory Results Last 24 Hours Test 12/07/16 08:39 12/08/16 06:34 Prothrombin Time 11.4 SECONDS Prothromb Time International Ratio 1.1 Activated Partial Thromboplast Time 26.8 SECONDS Partial Thromboplastin Ratio 1.0 White Blood Count 11.36 K/uL Red Blood Count 3.72 M/uL Hemoglobin 11.2 g/dL Hematocrit 32.6 % Mean Corpuscular Volume 87.6 fL Mean Corpuscular Hemoglobin 30.1 pg Mean Corpuscular Hemoglobin Concent 34.4 g/dl Platelet Count 209 K/uL Mean Platelet Volume 9.8 fL Neutrophils (%) (Auto) 79.4 % Lymphocytes (%) (Auto) 16.1 % Monocytes (%) (Auto) 4.0 % Eosinophils (%) (Auto) 0.2 % Basophils (%) (Auto) 0.1 % Neutrophils # (Auto) 9.02 K/uL Lymphocytes # (Auto) 1.83 K/uL Monocytes # (Auto) 0.46 K/uL Eosinophils # (Auto) 0.02 K/uL Basophils # (Auto) 0.01 K/uL RDW Standard Deviation 38.2 fL RDW Coefficient of Variation 11.9 % Immature Granulocyte % (Auto) 0.2 % Immature Granulocyte # (Auto) 0.02 K/uL Assessment and Plan Day Number: 1 Continue Routine Care: pain control much better this morning. 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 continue current care plan
[2016-12-08] MEDS: OXYCODONE HCL IR 5 MG TAB (IMMEDIATE RELEASE) PO PRN ×3 (12:34→20:33)
[2016-12-08] MEDS ORDERED: NURSING VERBAL MED ORDER ONE (13:00)
[2016-12-08] MEDS ORDERED: ZOLPIDEM TARTRATE 5 MG TAB PO PRN (20:30)
[2016-12-08] MEDS ORDERED: ACETAMINOPHEN IV 100 ML IV PRN (20:30)
[2016-12-08] MEDS ORDERED: SENNA 8.6 MG TAB PO SCH (21:00)
[2016-12-08] MEDS ORDERED: MAGNESIUM HYDROXIDE SUSP 30 ML UDC PO SCH (21:00)
[2016-12-09] MEDS: OXYCODONE HCL IR 5 MG TAB (IMMEDIATE RELEASE) PO PRN ×5 (00:38→17:21)
[2016-12-09 04:30] VITALS: BP 106/67; PULSE 82; TEMP 36.8; O2SAT 98
[2016-12-09 07:19] LABS: BASO % 0.1 %; BASO ABS # 0.01 K/uL (0-0.2); COMPLETE YES; IG% 0.2 %; LYMPH % 17.4 %; LYMPH ABS # 1.63 K/uL (1.2-3.4); MEAN CELL VOLUME 90.4 fL (80-100); MEAN CORPUSCULAR HEMOGLOBIN 31.4 pg (25-34); MEAN CORPUSCULAR HGB CONC 34.7 g/dl (32-36); MEAN PLATELET VOLUME 10.3 fL (7.4-10.4); MONO % 5.6 %; NEUT % 75.7 %; PLATELET COUNT 200 K/uL (130-400); RED BLOOD COUNT 3.54 M/uL (4.2-5.4); WHITE BLOOD COUNT 9.35 K/uL (4.8-10.8)
[2016-12-09 07:30] VITALS: BP 116/77; PULSE 69; TEMP 36.8; O2SAT 98
[2016-12-09] MEDS: ACETAMINOPHEN 500 MG TAB PO PRN ×3 (07:30→15:47)
--- NOTE | 2016-12-09 08:44 | OB/GYN Progress Note ---
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 Subjective conversation w/ patient, physical exam Ambulation: limited ambulation Voiding: no voiding problems Diet Tolerance: Clear Liquids Objective Vital Signs Date Time Temp Pulse Resp B/P (MAP) Pulse Ox O2 Delivery O2 Flow Rate FiO2 12/09/16 07:30 98 Room Air 12/09/16 07:30 36.8 69 18 116/77 (90) 98 Room Air 12/09/16 04:30 36.8 82 16 106/67 (80) 98 Room Air 12/08/16 23:40 36.8 88 16 102/63 (76) 98 Room Air 12/08/16 23:40 98 Room Air 12/08/16 19:25 36.5 80 18 105/67 (80) 97 Room Air 12/08/16 19:25 97 Room Air 12/08/16 15:40 99 Room Air 12/08/16 15:40 36.8 62 18 108/70 (83) 98 Room Air 12/08/16 11:45 36.9 56 18 109/66 (80) 98 Room Air 12/08/16 09:00 36.8 59 16 107/69 98 Room Air Physical Exam General Appearance: WELL-APPEARING, NO APPARENT DISTRESS Respiratory/Chest: lungs clear Cardiovascular: regular rate, rhythm Incision Description: Clean, Dry & Intact Extremities: no calf tenderness Laboratory Results Last 24 Hours Test 12/09/16 07:11 White Blood Count 9.35 K/uL Red Blood Count 3.54 M/uL Hemoglobin 11.1 g/dL Hematocrit 32.0 % Mean Corpuscular Volume 90.4 fL Mean Corpuscular Hemoglobin 31.4 pg Mean Corpuscular Hemoglobin Concent 34.7 g/dl Platelet Count 200 K/uL Mean Platelet Volume 10.3 fL Neutrophils (%) (Auto) 75.7 % Lymphocytes (%) (Auto) 17.4 % Monocytes (%) (Auto) 5.6 % Eosinophils (%) (Auto) 1.0 % Basophils (%) (Auto) 0.1 % Neutrophils # (Auto) 7.08 K/uL Lymphocytes # (Auto) 1.63 K/uL Monocytes # (Auto) 0.52 K/uL Eosinophils # (Auto) 0.09 K/uL Basophils # (Auto) 0.01 K/uL RDW Standard Deviation 40.3 fL RDW Coefficient of Variation 12.3 % Immature Granulocyte % (Auto) 0.2 % Immature Granulocyte # (Auto) 0.02 K/uL Assessment and Plan Post-Op Day Number: 2 Continue Routine Care: - patient with limited ambulation because of pain control - discussed different strategies for dealing with pain control - pt's affect very flat, discussed depression, no h/o depression after delivery of first child - pt requesting counselling options - will be able to start NSAID's in AM - discharge instructions reviewed,but re-evaluate in 6 hours
[2016-12-09] MEDS ORDERED: RXC5 PO (08:45)
--- NOTE | 2016-12-09 08:49 | Discharge Instructions ---
Discharge Instructions Date of Service Dec 09, 2016. Admission Reason for Admission: Ectopic , Feeling Off Discharge Discharge Diagnosis / Problem: same Discharge Goals Goal(s): Routine recovery after surgery Activity Recommendations Activity Limitations: as noted below . Instructions / Follow-Up Instructions / Follow-Up ACTIVITY RECOMMENDATIONS: Activity: * During the first week at home, your activity should be similar to that done at the hospital prior to discharge. Your primary activity is in-house walking interspersed with rest periods. Preparing lunch for yourself is acceptable. You may go up and down stairs. Try to stay up progressively longer periods of time to help regain your strength more quickly. * During the second week at home, activities should include some meal preparation, walking to strengthen abdominal muscles and riding in a car. You may drive a car and make brief shopping trips at the end of the second week at home. * Lifting should not exceed 15-20 pounds during the first month after surgery. * Sexual intercourse can usually be resumed about 6 weeks after surgery depending on findings at your post-operative examinations. Bathing: * Showers or baths are permissible. Sitting in four to six inches of hot water (sitz bath) is often comforting after vaginal surgery and is permitted at any time. A sitz bath at bedtime can also assist in a better night's sleep. SPECIAL CARE INSTRUCTIONS: The major discomforts related to surgery have now passed and progressive improvement will occur. The tight uncomfortable feeling in the abdominal, pelvic and back area will gradually fade away. Fatigue may take the longest to disappear; your energy level may take several weeks to return to normal. At times you may become frustrated or impatient over not feeling as well or doing as much as you'd like , but this is a normal reaction to surgery and will pass with time. Vaginal Discharge: * Odorous, blood-tinged or brownish discharge may be present for one to three weeks after surgery. * Pads should be used and not tampons. * Stitches may be passed vaginally. * Bleeding may be somewhat increased approximately two weeks after surgery, which is related to the stitches dissolving. * If bleeding becomes free flowing, notify our office at . Bowel Care: * Constipation after surgery is very common. Foods that promote bowel activity (bran, fruit, prune juice) should be included in your diet. * A capsule, DIALOSE-PLUS, can be purchased without a prescription and can be taken daily (one or two capsules) to assist in promoting bowel activity. * If you have had vaginal surgery involving your rectum, we will discuss this when discharged from the hospital. Temperature: * Any fever above 100.4 degrees F should be reported to our office at . FOLLOW-UP: Post-Operative Appointments: * Individual instructions will have been given about the timing of your first examination, but this is usually at the end of the second week home. * You will need to call the office at soon after discharge to make the appointment for your post-op check-up if it has not already been scheduled. * Additional information regarding activity, sexual intercourse and when to return to work will be given at this appointment. * [facility] (mental health clinic) for depression counselling WE WISH YOU A SPEEDY RECOVERY! Current Hospital Diet Patient's current hospital diet: Regular Diet Discharge Diet Recommended Diet: Regular Diet Procedures Procedures Performed: 1) Exploratory Laparotomy, 2) resection of cornual Pending Studies Studies pending at discharge: yes List of pending studies: Pathology report Medical Emergencies . Who to Call and When: Medical Emergencies: If at any time you feel your situation is an emergency, please call 911 immediately. . Non-Emergent Contact Non-Emergency issues call your: Primary Care Provider, Loan Expeditor Call Non-Emergent contact if: you have a fever, temperature is above 100.5, your pain is not controlled, your pain is worsening, wound has increased drainage, wound has increased redness . . "Provider Documentation" section prepared by David Encarnacion. . VTE Core Measure Inpt VTE Proph given/why not?: SCD's [place] Drug Monitoring Program Search Results: no issues identified
[2016-12-09] MEDS ORDERED: ACET-24 PO (08:55)
[2016-12-09] MEDS ORDERED: MTR600X PO (08:55)
[2016-12-09 11:50] VITALS: BP 108/72; PULSE 69; TEMP 36.8; O2SAT 98
[2016-12-09 15:55] VITALS: BP 108/72; PULSE 66; TEMP 36.8; O2SAT 98
--- NOTE | 2016-12-09 16:49 | DISCHARGE SUMMARY ---
ADMITTING DIAGNOSES: 1. Cornual ectopic . 2. Failed medical therapy. DISCHARGE DIAGNOSES: Same. PROCEDURES PERFORMED: 1. Exploratory laparotomy. 2. Resection of left cornual ectopic . DISCHARGE MEDICATION: Oxycodone 5 mg p.o. q. 3-4 hours p.r.n. pain. ADMISSION HISTORY: The patient is a 36-year-old 3, para 1 with the last menstrual period of 17 October, of 7 weeks gestational age, who was admitted through the Emergency Room for exploratory laparotomy with resection of left cornual ectopic . The patient was diagnosed with the ectopic in the office last week. She had been seen at that time for some vaginal spotting and had a transvaginal ultrasound which showed no intrauterine within the endometrial canal, but an ectopic in the left cornual section of the uterus. There was a pole with cardiac activity. Because of the location of the , treatment options were discussed and the patient consented for conservative management with high dose methotrexate. The patient received 4 doses of methotrexate with leucovorin rescue. On the morning of admission, the patient awoke with some generalized discomfort, lightheadedness and intermittent abdominal pain, went to the Emergency Room for evaluation. In the Emergency Room, the patient had a pelvic ultrasound as well as a quantitative hCG. While the pelvic ultrasound showed no cardiac pole or cardiac activity and the residual sac in the left cornual uterus, the patient's quantitative hCG over the last 24 hours had risen slightly. Treatment options were discussed and the patient was admitted for surgical removal of the ectopic. ADMISSION PHYSICAL EXAMINATION: GENERAL: Showed a thin white female in no acute distress. VITAL SIGNS: Blood pressure 109/80, pulse 88, weight of 126 pounds. HEENT: Unremarkable. NECK: Supple. LUNGS: Clear. HEART: With a regular rhythm and rate. ABDOMEN: Soft with no tenderness, no rebound, no guarding, no organomegaly. Positive bowel sounds. PELVIC: Showed normal external genitalia. Vaginal vault pink and rugated. Cervical os is closed. Bimanual examination shows a posterior mobile uterus with some fullness in the left adnexal area but no distinct masses. EXTREMITIES: Showed no deep calf tenderness. NEUROLOGIC: Grossly intact. ADMISSION LABORATORY VALUES: Showed an H&H of 13.4 and 38.1. Quantitative hCG of 12,416. HOSPITAL COURSE: On day of admission, patient was taken to the operating room where she underwent the above listed procedures. Operative findings showed a 6-week size uterus with a vascular insertion of the left tube into the cornual aspect of the uterus with a normal appearing right tube and ovary, normal appearing left ovary, left cornual resection of the uterus encompassing gestational sac which was extruded cornual resection and sent for pathological evaluation. Endometrial cavity was entered at the time of the . Postoperatively, the patient did well. H&H came back on the 1st postoperative day at 11.2 and 32.6. There was some difficulty with postoperative pain management. The patient was not a candidate for nonsteroidals because of the high dose methotrexate. She received intrathecal Duramorph prior to her surgery but still required a HAND TUFTER postoperatively. The patient was managed with oral oxycodone and IV Tylenol. By the 2nd postoperative day, the patient was ambulating and tolerating a regular diet. She was discharged home with the routine discharge instructions and the prescriptions for the medications listed as above. She is going to follow up in the office in 2 weeks' time for a postoperative check, but as always she has been instructed to call with any questions, problems or difficulties.
[2016-12-09 17:34] VITALS: BP 108/72; PULSE 66; TEMP 36.8; O2SAT 98
== END 2016-12-09 18:30 | disposition home or self-care (01) | DRG 777 ==
LOC: C.EDB 06:29 → EEVIPCON 09:28 → C.MS4N 09:28 → ENRESERV 10:34
PROVIDERS: ADMIT Obstetrics & Gynecology; ATTEND Obstetrics & Gynecology
PROC: 0UB90ZZ Excision of Uterus, Open Approach (ICD-10-PCS; principal; 2016-12-07 08:00)
PROC: 10T20ZZ Resection of Products of Conception, Ectopic, Open Approach (ICD-10-PCS; principal; 2016-12-07 08:00)
DX: O00.81 Other ectopic pregnancy with intrauterine pregnancy (principal); O34.219 Maternal care for unspecified type scar from previous cesarean delivery; O61.0 Failed medical induction of labor; Z3A.01 Less than 8 weeks gestation of pregnancy